=== PATIENT | male | born 1960 | race Caucasian/White ===

== ENCOUNTER 2020-05-15 07:28 | Day surgery (SDC) | payer OTHER ==
--- NOTE | 2020-05-14 11:55 | PCM.PREANE ---
<Selina Kim - Last Filed: 05/15/20 08:23> Preanesthetic Assessment - Anesthesia/Transfusion/Family Hx Anesthesia History: Prior Anesthesia Without Reaction Family History of Anesthesia Reaction: No Transfusion History: No Prior Transfusion(s) Intubation History: Unknown - Review of Systems General: No Symptoms Pulmonary: No Symptoms Cardiovascular: No Symptoms Gastrointestinal: No Symptoms Neurological: No Symptoms Other: Reports: Diabetes (86) - Physical Assessment NPO Status Time: 22:00 ASA Class: 3 Mental Status: Alert & Oriented x3 Dentition: Reports: Normal Dentition Thyro-Mental Finger Breadths: 3 Mouth Opening Finger Breadths: 3 ROM/Head Extension: Full Lungs: Clear to Auscultation, Normal Respiratory Effort Cardiovascular: Regular Rate, Regular Rhythm - Allergies Allergies/Adverse Reactions: Allergies Allergy/AdvReac Type Severity Reaction Status Date / Time No Known Allergies Allergy Verified 05/15/20 09:04 - Anesthesia Plan Pre-Op Medication Ordered: Beta Reynaldo Beta Reynaldo: Metoprolol Med Last Dose Time: 06:30 - Acknowledgements Anesthesia Type Planned: RORY, MAC Pt an Appropriate Candidate for the Planned Anesthesia: Yes Alternatives and Risks of Anesthesia Discussed w Pt/Guardian: Yes Pt/Guardian Understands and Agrees with Anesthesia Plan: Yes PreAnesthesia Questionnaire HEENT History: Reports: None Cardiovascular History: Reports: CAD, High Cholesterol, Hypertension, [place] (2013, CABG 4 vessel) Respiratory History: Reports: None Gastrointestinal History: Reports: None Genitourinary History: Reports: None Musculoskeletal History: Reports: None Endocrine/Metabolic History: Reports: Diabetes, Type II Hematologic History: Reports: None - Past Surgical History HEENT Surgical History: Reports: Tonsillectomy Cardiovascular Surgical History: Reports: Coronary Artery Bypass Musculoskeletal Surgical History: Reports: Carpal Tunnel - SUBSTANCE USE Tobacco Use Status *Q: Never Tobacco User - HOME MEDS Home Medications: Home Meds Aspirin [Halfprin] 81 mg PO DAILY 05/14/20 [History] Dapagliflozin Propanediol [Farxiga] 5 mg PO DAILY 05/14/20 [History] Glimepiride 4 mg PO BID 05/14/20 [History] Metoprolol Tartrate 100 mg PO DAILY 05/14/20 [History] Semaglutide [Rybelsus] 7 mg PO DAILY 05/14/20 [History] atorvaSTATin [Lipitor] 40 mg PO DAILY 05/14/20 [History] lisinopriL [Prinivil] 2.5 mg PO DAILY 05/14/20 [History] <Maira Mcdaniel - Last Filed: 05/15/20 09:20> Preanesthetic Assessment - Procedure Proposed Procedure: Right Carpal Tunnel Release - Anesthesia/Transfusion/Family Hx Anesthesia History: Prior Anesthesia Without Reaction Family History of Anesthesia Reaction: No Transfusion History: No Prior Transfusion(s) Intubation History: Unknown - Review of Systems Cardiovascular: No Symptoms (CABG times 4 vessels, HTN, CAD, elevated cholesterol) Other: Reports: Diabetes (am blood sugar=86) - Physical Assessment NPO Status Date: 05/14/20 Vital Signs: HR: Sat: Temp: Resp: B/P: Height: 1.78 m Weight: 82 kg ASA Class: 3 Mental Status: Alert & Oriented x3 Airway Class: Mallampati = 2 - Lab Values: Laboratory Last Values POC Glucose 86 mg/dL (80-115) 05/15/20 07:48 - Imaging/EKG Impressions: EKG:SR rate=77, old inferior infarct, minimal ST segment elevation anterior leads - Anesthesia Plan Pre-Op Medication Ordered: Beta Reynaldo Beta Reynaldo: Metoprolol Med Last Dose Date: 05/15/20 - Acknowledgements Anesthesia Type Planned: RORY (Mini Rory Block), MAC Pt an Appropriate Candidate for the Planned Anesthesia: Yes Alternatives and Risks of Anesthesia Discussed w Pt/Guardian: Yes Pt/Guardian Understands and Agrees with Anesthesia Plan: Yes PreAnesthesia Questionnaire - CURRENT (IN HOUSE) MEDS Current Meds: Current Medications Lactated Ringer's (Ringers, Lactated) 1,000 mls @ 125 mls/hr IV ASDIRECTED REBECA Stop: 05/15/20 23:00 Lidocaine/Sodium Bicarbonate (Buffered Lidocaine 1% In Ns 8.4%) 0.25 ml IDERM ONETIME PRN PRN Reason: Prior to IV Start Stop: 05/15/20 18:00 Sodium Chloride (Saline Flush) 10 ml FLUSH ASDIRECTED PRN PRN Reason: Keep Vein Open Stop: 05/15/20 18:00 Discontinued Medications Cefazolin Sodium (Ancef) Confirm Administered Dose 2 gm .ROUTE .STK-MED ONE Stop: 05/15/20 07:14 Fentanyl (Sublimaze) Confirm Administered Dose 100 mcg .ROUTE .STK-MED ONE Stop: 05/15/20 07:15 Lidocaine HCl (Xylocaine-Mpf 1%) Confirm Administered Dose 4 mls @ as directed .ROUTE .STK-MED ONE Stop: 05/15/20 07:14 Lidocaine HCl (Xylocaine-Mpf 0.5%) Confirm Administered Dose 50 ml .ROUTE .STK- MED ONE Stop: 05/15/20 07:14 Midazolam HCl (Versed 1 Mg/Ml) Confirm Administered Dose 2 mg .ROUTE .STK-MED ONE Stop: 05/15/20 07:15 Ondansetron HCl (Zofran) Confirm Administered Dose 4 mg .ROUTE .STK-MED ONE Stop: 05/15/20 07:14 Propofol (Diprivan 20 Ml) Confirm Administered Dose 200 mg .ROUTE .STK-MED ONE Stop: 05/15/20 07:15 Sodium Bicarbonate (Sodium Bicarbonate 8.4%) Confirm Administered Dose 50 meq .ROUTE .STK-MED ONE Stop: 05/15/20 07:14
[~2020-05-15 07:28] MED LIST: Lactated Ringers 1,000 ML IV SCH; Lidocaine 0.5% 50 ML SDV ONE; Lidocaine 1% 4 ML ONE; Lidocaine 1%/Sod Bicarbonate in NS 8.4% 1 ML Syringe IDERM PRN; Midazolam 1 MG/ML 2 ML SDV ONE; Ondansetron 4 MG/2 ML SDV ONE; Propofol 200 MG/20 ML SDV ONE; Sodium Bicarbonate 8.4% 50 MEQ/50 ML SDV ONE; Sodium Chloride 0.9% 10 ML Syringe FLUSH PRN; ceFAZolin 1 GM Vial ONE; fentaNYL 100 MCG/2 ML SDV ONE
[2020-05-15] MEDS ORDERED: Bupivacaine 0.25% 10 ML SDV ONE (08:49)
[2020-05-15] MEDS ORDERED: Lactated Ringers 1,000 ML ONE (09:44)
[2020-05-15] MEDS ORDERED: diphenhydrAMINE 50 MG/ML SDV IVPUSH PRN (09:47)
[2020-05-15] MEDS ORDERED: Ondansetron 4 MG/2 ML SDV IVPUSH PRN (09:47)
[2020-05-15] MEDS ORDERED: fentaNYL 100 MCG/2 ML SDV IVPUSH PRN (09:47)
[2020-05-15] MEDS ORDERED: HYDROmorphone 0.5 MG/0.5 ML Syringe IVPUSH PRN (09:47)
[2020-05-15] MEDS ORDERED: ePHEDrine 50 MG/ML SDV IVPUSH PRN (09:47)
--- NOTE | 2020-05-15 10:19 | PCM48HPAN ---
Post Anesthesia Note - EVALUATION WITHIN 48HRS OF ANESTHETIC Vital Signs in Normal Range: Yes Patient Participated in Evaluation: Yes Respiratory Function Stable: Yes Airway Patent: Yes Cardiovascular Function Stable: Yes Hydration Status Stable: Yes Pain Control Satisfactory: Yes Nausea and Vomiting Control Satisfactory: Yes Mental Status Recovered: Yes Vital Signs: Last Vital Signs Temp 36.2 C 05/15/20 07:40 Pulse 83 05/15/20 07:40 Resp 16 05/15/20 07:40 BP 119/78 05/15/20 07:40 Pulse Ox 97 05/15/20 07:40
--- NOTE | 2020-05-21 07:36 | OR ---
DATE OF OPERATION: 05/15/2020 SURGEON: Tommie Reddy MD PREOPERATIVE DIAGNOSIS: Right carpal tunnel syndrome, G56.01. POSTOPERATIVE DIAGNOSIS: Right carpal tunnel syndrome, G56.01. OPERATION PERFORMED: Right open carpal tunnel release, [id number]. [employer] HELPER: Deysi Weiss RN. DESCRIPTION OF PROCEDURE: The patient is a pleasant 59-year-old gentleman with symptomatic carpal tunnel syndrome. The patient had failed all conservative measures and wished to proceed with surgery. The patient was brought to the operating room, underwent Jil blockade. His right upper extremity was prepped and draped in a standard orthopedic fashion. Surgical pause was performed identifying the appropriate patient and appropriate extremity to be operated upon. Preoperative antibiotics were given. I made a longitudinal incision between the thenar and hypothenar eminences. Sharp dissection was carried out through the skin and subcutaneous tissue. Hemostasis was obtained. We dissected down to the palmar facial fibers, which were divided. We then opened the transverse carpal ligament along its ulnar border down to the level of the superficial palmar arch distally. We then turned our attention proximally and released the transverse carpal ligament as well as the antebrachial fascia several centimeters proximal to the wrist flexion crease. Contents of the carpal tunnel were evaluated. He did have significant synovitis in the carpal tunnel. This was not debrided. There was fusiform compression of the nerve between the transverse carpal ligament and antebrachial fascia. The wounds were irrigated thoroughly. The skin was closed with 5-0 nylon. He was placed in a sterile dressing and brought to recovery in satisfactory condition. ANESTHESIA: ESTIMATED BLOOD LOSS: MMODAL /[id number]
== END 2020-05-15 10:57 | disposition home or self-care (01) ==
LOC: JD.SDS 07:28
PROVIDERS: ATTEND Orthopaedic Surgery
DX: G56.01 Carpal tunnel syndrome, right upper limb (principal); E66.3 Overweight; E11.9 Type 2 diabetes mellitus without complications; I11.9 Hypertensive heart disease without heart failure; I25.2 Old myocardial infarction; I25.10 Atherosclerotic heart disease of native coronary artery without angina pectoris; E78.00 Pure hypercholesterolemia, unspecified; Z79.899 Other long term (current) drug therapy; Z79.82 Long term (current) use of aspirin; Z79.84 Long term (current) use of oral hypoglycemic drugs; Z95.1 Presence of aortocoronary bypass graft; Z98.890 Other specified postprocedural states; Z68.25 Body mass index [BMI] 25.0-25.9, adult
CPT/HCPCS: 64721; 82962; 87641; J0690; J2001; J2250; J2405; J2704; J3010; J3490; J7120; 01810